=== PATIENT | male | born 1975 | race Caucasian/White ===

== ENCOUNTER 2016-09-13 18:54 | Emergency (ER) | payer OTHER ==
[~2016-09-13 18:54] MED LIST: BENAZEPRIL-HCT1 EAC3 PO; CLEOCIN HCL300 M1 PO; IBUPROFEN800 M1 PO; MELOXICAM15 M1 PO; NORCO 5-325 TA1 EACH PO
[2016-09-13] MEDS ORDERED: TRIAMCINOLONE A15 G2 TP (19:26)
[2016-09-13] MEDS ORDERED: BENADRYL25 M3 PO (19:26)
== END 2016-09-13 19:31 ==
LOC: EDMED 18:54
DX: T63.461A Toxic effect of venom of wasps, accidental (unintentional), initial encounter (principal); I10 Essential (primary) hypertension; Z88.0 Allergy status to penicillin; Z98.890 Other specified postprocedural states